=== PATIENT | female | born 1995 | race Caucasian/White ===

== ENCOUNTER 2019-09-24 15:00 | Emergency (ER) | payer OTHER ==
[~2019-09-24] VITALS: Ht 170.2 cm; Wt 68.0 kg
[2019-09-24 16:49] VITALS: BP 151/83
== END 2019-09-24 16:08 | disposition home or self-care (01) ==
LOC: ER 15:00
DX: R50.9 Fever, unspecified (principal); Z20.828 Contact with and (suspected) exposure to other viral communicable diseases